=== PATIENT | male | born 1955 ===

== ENCOUNTER 2022-06-13 10:23 | Emergency (ER) | payer SELFPAY ==
[~2022-06-13] VITALS: Ht 175.3 cm; Wt 86.0 kg
[2022-06-13] MEDS ORDERED: KETOROLAC 30MG/ML VIAL IV STA (11:38)
[2022-06-13] MEDS ORDERED: SODIUM CHLORIDE 0.9% 1,000 ML IV ONE (11:45)
[2022-06-13 12:39] LABS: BASOPHILS % 0.8 % (0.0-2.0); EOSINOPHILS % 1.2 % (0.0-5.0); HEMATOCRIT. 34.7 % (42.0-52.0); HEMOGLOBIN. 11.6 g/dL (14.0-18.0); LYMPHOCYTES % 16.4 % (20.0-50.0); MEAN CORPUSCULAR HEMOGLOBIN 29.3 pg (28.0-32.0); MEAN CORPUSCULAR VOLUME 87.8 fL (80.0-94.0); MEAN PLATELET VOLUME 7.8 fl (7.4-10.4); MONOCYTES % 7.4 % (2.0-8.0); NEUTROPHILS % 74.2 % (40.0-76.0); PLATELET 325 x1000/uL (130-400); RED BLOOD CELL COUNT 3.95 mill/uL (4.7-6.1); RED CELL DISTRIBUTION WIDTH 15.5 % (11.6-14.6)
[2022-06-13 12:44] LABS: INR 1.2; PROTHROMBIN TIME 12.8 sec (9.6-11.0)
[2022-06-13] MEDS ORDERED: ACET-2708 MT (17:35)
[2022-06-13 21:11] LABS: CHLORIDE 108 mEq/L (98-107)
[2022-06-13 22:54] VITALS: BP 152/57
== END 2022-06-14 00:32 | disposition home or self-care (01) ==
LOC: ER 10:23
DX: M25.562 Pain in left knee (principal); I10 Essential (primary) hypertension; F20.9 Schizophrenia, unspecified
CPT/HCPCS: 36415; 71045; 73562; 80053; 80307; 80329; 84484; 85025; 85610; 93005; 99285; J7030